=== PATIENT | male | born 1995 | race African-American/Black ===

== ENCOUNTER 2024-07-26 12:47 | Outpatient (CLI) | payer OTHER, SELFPAY ==
--- NOTE | ~2024-07-26 | MR_ITS ---
MRI of the left knee Clinical history: Pain Technique: Coronal proton density and proton density-weighted images, sagittal proton-density and T2 fat-sat images, and axial proton-density fat-saturated images were acquired. Findings: Anterior and posterior cruciate ligaments are intact. Medial collateral ligament and the la teral collateral ligament complex are intact. Popliteus tendon is intact. Medial and lateral menisci are intact, without evidence of tear. Articular cartilage demonstrates mild chondromalacia at the medial patellar facet. Remaining articula r cartilage is well preserved. Bone marrow signals are unremarkable. Extensor mechanism is intact. No joint effusion or Ramirez's cyst. 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 No ligamentous injury or meniscal tear evident. Reviewed, dictated and finalized at location . 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 No ligamentous injury or meniscal tear evident.
== END 2024-07-26 12:48 | disposition home or self-care (01) ==
LOC: ANHIMG 13:01
PROVIDERS: Visit Provider Internal Medicine
DX: M22.42 Chondromalacia patellae, left knee (principal); G89.29 Other chronic pain
CPT/HCPCS: 73721